=== PATIENT | male | born 1965 | race Caucasian/White ===

== ENCOUNTER 2016-11-15 05:59 | Emergency (ER) | payer SELFPAY ==
[~2016-11-15] VITALS: Ht 185.4 cm; Wt 71.9 kg
[2016-11-15] MEDS ORDERED: KETOROLAC 30 MG/1 ML IM ONE (06:30)
[2016-11-15] MEDS ORDERED: KETOROLAC 30 MG/1 ML ONE (06:33)
[2016-11-15 08:49] VITALS: BP 118/70
== END 2016-11-15 08:51 | disposition home or self-care (01) ==
LOC: ED 08:20
DX: M48.56XA Collapsed vertebra, not elsewhere classified, lumbar region, initial encounter for fracture (principal); M51.16 Intervertebral disc disorders with radiculopathy, lumbar region; S40.021A Contusion of right upper arm, initial encounter; W19.XXXA Unspecified fall, initial encounter; Y93.89 Activity, other specified; Y92.89 Other specified places as the place of occurrence of the external cause; Y99.8 Other external cause status
CPT/HCPCS: 74176; 96372; 99284; J1885